=== PATIENT | female | born 1980 | race Caucasian/White ===

== ENCOUNTER 2021-07-05 16:22 | Emergency (ER) | payer MEDICAID, SELFPAY ==
[2021-07-05 17:55] VITALS: BP 135/93; PULSE 68; RESP 18; TEMP 36.4; O2SAT 100; BMI 36.8
--- NOTE | 2021-07-05 18:11 | XRR_ITS ---
PROCEDURE INFORMATION: Exam: XR Left Hand Exam date and time: 07/05/2021 6:11 PM Age: 41 years old Clinical indication: Pain; Hand; Left; Additional info: Injury to right finger approximately 2 weeks ago TECHNIQUE: Imaging protocol: XR Left hand. Views: 3 or more views. COMPARISON: No relevant prior studies available. FINDINGS: Bones/joints: There is an avulsion injury from the posterior aspect the proximal and of the left 4th distal phalanx. Soft tissues: There is soft tissue swelling of the 4th digit. XR/XR hand LT min 3V* [id number] IMPRESSION: Fracture of the base of the left 4th distal phalanx. Radiation Dose CTDIVOL = (mGy): DLP = (mGy-cm)
--- NOTE | 2021-07-05 18:35 | ED_ITS ---
HPI - Extremity Problem General: Chief complaint: Extremity Injury, Upper Stated complaint: PT say broken L ring finger Time Seen by Provider: 07/05/21 18:11 History of Present Illness: HPI Narrative: Patient is a 41-year-old female comes to the ED with pain to left ring finger. Patient says approximately 2 weeks ago she injured her finger. Injury occurred when patient was in her vehicle and was grabbing something to handed to the daughter in the backseat and she jammed her left ring finger. The tip of left ring finger was slightly bent and tender. She said all the swelling has improved over the last 2 weeks but she still has pain in the distal tip of finger and it is slightly bent. Patient still has full range of motion and ring finger. Associated symptoms: Deny chest pain, fever(s) or rash Review of Systems Const: Denies: fever(s), chills or fatigue Eyes: Denies: change in vision or eye discomfort ENMT: Denies: throat pain, odynophagia, nasal discharge or nasal congestion Card: Denies: chest pain, palpitations, edema, swelling of feet/ankles, dyspnea on exertion or orthopnea Resp: Denies: dyspnea, productive cough or non-productive cough GI: Denies: abdominal pain, nausea, vomiting, diarrhea, constipation or hematochezia : Denies: flank pain, dysuria or hematuria Musc: Reports: extremity pain (left hand ring finger) and deformity (Distal tip of Left ring finger slightly in flexion position); Denies: neck pain, back pain or extremity swelling Skin/Breast: Denies: rash or new lesions Neuro: Denies: headache(s), numbness in extremities or weakness in extremities Physical Exam Const: COMMON NORMALS: no acute distress, patient oriented x3, healthy ap pearing and alert GENERAL APPEARANCE: cooperative and comfortable HENMT: COMMON NORMALS: normocephalic HEAD & SCALP: normocephalic MOUTH: Normal oral and palatal mucosa present THROAT: posterior oropharynx normal and uvula midline Neck/C-Spine: COMMON NORMALS: supple GENERAL: Yes normal visual inspection Resp: COMMON NORMALS: normal respiratory effort, No retractions, No use of accessory muscles and clear to auscultation bilaterally AUSCULTATION: clear to auscultation bilaterally Cardio: COMMON NORMALS: regular rate, regular rhythm, S1 normal heart sound present, S2 normal heart sound present, No gallops present (Cardio), No clicks present (Cardio), No murmurs present (Cardio) and Peripheral pulses 2+ throughout RATE: regular rate RHYTHM: regular rhythm HEART SOUNDS: S1 normal heart sound present and S2 normal heart sound present PERIPHERAL PULSES: Peripheral pulses 2+ throughout GI: COMMON NORMALS: Normal to inspection, nondistended, normoactive bowel sounds present, Soft to palpation, non-tender and no masses PALPATION: Yes Soft to palpation : COMMON NORMALS: Yes no CVA tenderness BLADDER/KIDNEY EXAM: Yes no CVA tenderness Back/Pelvis: COMMON NORMALS: no CVA tenderness Extremity: GENERAL: Yes normal exam except as noted LEFT UPPER EXTREMITY: Yes hand & digits Left hand and digits: Yes inspection (Fourth digit distal tip slightly flexed. No nailbed damage noted.), Yes palpation (Tenderness over distal tip of fourth digit), Yes ROM (Full range of motion) and Yes neurovascular exam (Neurovascular tact.) Neuro: COMMON NORMALS: patient oriented x3 and moves all extremities SENSORIUM/ORIENTATION: Yes alert Skin: GENERAL SKIN EXAM: dry skin Course Vital Signs: Vital signs: Vital Signs Temperature 97.6 F 07/05/21 17:55 Pulse Rate 68 07/05/21 19:32 Respiratory Rate 18 07/05/21 19:32 Blood Pressure 135/93 07/05/21 19:32 Pulse Oximetry 100 07/05/21 19:32 MDM - Extremity (Nontraumatic) MDM Narrative: Medical decision making narrative: Patient is a 41-year-old female comes to the ED with injury to fourth digit on left hand. Injury occurred approximately 2 weeks ago and it has not improved. She has slight flexion at distal tip of fourth digit with tenderness as well. Full range of motion neurovascular intact. No nailbed damage noted. Left hand x-ray showed fracture of the base of the left fourth distal phalanx. Patient was put in a finger splint night put in order for patient be referred to orthopedic due to fracture being untreated for over 2 weeks in the slight flexion of distal tip of digit. Patient discharged home and told that case specialist will contact them the next couple days to set up a appointment with orthopedic. Return to ED precautions given. Patient understood agree with plan. Imaging Data^: Xray Ortho: Attestation: I personally reviewed and interpreted this imaging study as follows: My impression: Left hand x-ray?distal phalanx fracture Radiologist's impression: [facility], [place] [address]RGqd ReportSigned Patient: Arnol Senior #: [id number]: 1980Acct#:[id number]/Sex: 41 / FADM Date: 07/05/21Loc: ERRoom/Bed:Attending Dr: Ordering Provider/Ordering MD: Sukhi Colbert Date of Service: 07/05/21 Procedure(s): XR hand LT min 3V* [id number] Accession Number(s): [id number] Report Number: [id number] PROCEDURE INFORMATION: Exam: XR Left Hand Exam date and time: 07/05/2021 6:11 PM Age: 41 years old Clinical indication: Pain; Hand; Left; Additional info: Injury to right finger approximately 2 weeks ago TECHNIQUE: Imaging protocol: XR Left hand. Views: 3 or more views. COMPARISON: No relevant prior studies available. FINDINGS: Bones/joints: There is an avulsion injury from the posterior aspect the proximal and of the left 4th distal phalanx. Soft tissues: There is soft tissue swelling of the 4th digit. XR/XR hand LT min 3V* [id number] IMPRESSION: Fracture of the base of the left 4th distal phalanx. Radiation Dose CTDIVOL = (mGy): DLP = (mGy-cm) Dictated By:Amee Shultzigned By:Palak Shultz Date/Time:07/05/211925DD/ 10 Discharge Plan Discharge Patient Disposition: Home Clinical Impression: Fracture of distal phalanx of finger Qualifiers: Encounter type: initial encounter Finger: ring finger Fracture type: closed Fracture alignment: nondisplaced Laterality: left Qualified Code(s): S62.665A - Nondisplaced fracture of distal phalanx of left ring finger, initial encounter for closed fracture Condition: Stable Discharge Orders: Discharge ED (Routine); Ordered 07/05/21 Ordered By: Sukhi Colbert Discharge Diet: Regular Discharge Activity: Resume usual activity Patient Instructions: Finger Fracture (ED) Activity Restrictions/Additional Instructions: Follow-up with medical provider as directed. Case management should be cont acting you the next several days set up appoint with orthopedic for further evaluation and follow-up. Take medications as prescribed. Return to the ER or your medical provider if condition worsens. Please read and understand discharge instructions. Thank you for choosing [facility] for your healthcare needs today. Please realize this is an emergency room and that we are providing you with a medical screening exam and this may not be complete and all inclusive of all the testing and or work up that you may need to determine your ailment or severity of your illness. It is very important that you follow up as instructed or that you return to the Emergency Department should you have concerns or if your condition changes or worsens in any way. Coding Level of Care Code ED Production Line Mechanic for Valdo Read Exam Comprehensive
[2021-07-05 19:32] VITALS: BP 135/93; PULSE 68; RESP 18; O2SAT 100
--- NOTE | 2021-07-05 19:35 | PC.NURSE ---
frog splint sz med applied to pt. PMS normal after placement
--- NOTE | 2021-07-06 10:16 | DCPLANNER ---
sr. media manager had message to schedule a follow up appointment for patient with ortho. sr. media manager called the ortho clinic, spoke with Juana, gave clinic patients information. sr. media manager was told that patients information would be printed and reviewed. Clinic will call patient with appointment information.
--- NOTE | 2021-07-30 06:38 | DCPLANNER ---
Patient had a follow up appointment scheduled for 07.17.[address] Amaya at [facility] - patient did attend appointment.
== END 2021-07-05 19:30 | disposition home or self-care (01) ==
PROVIDERS: Emergency Provider Physician Assistant
DX: S62.665A Nondisplaced fracture of distal phalanx of left ring finger, initial encounter for closed fracture (principal); W23.0XXA Caught, crushed, jammed, or pinched between moving objects, initial encounter
CPT/HCPCS: 73130; 99282

== ENCOUNTER 2022-04-11 20:57 | Emergency (ER) | payer MEDICAID, SELFPAY ==
--- NOTE | 2022-04-11 21:15 | XRR_ITS ---
PROCEDURE INFORMATION: Exam: XR Right Wrist Exam date and time: 04/11/2022 9:32 PM Age: 42 years old Clinical indication: Injury or trauma; Fall; Blunt trauma (contusions or hematomas); Wrist; Right TECHNIQUE: Imaging protocol: Radiologic exam of the Right wrist. Views: 3 or more views. COMPARISON: No relevant prior studies available. FINDINGS: Bones/joints: Normal. Soft tissues: Normal. XR/XR wrist RT min 3V* [id number] IMPRESSION: Unremarkable
[2022-04-11 21:23] VITALS: BP 144/91; PULSE 77; RESP 18; TEMP 37; O2SAT 98; BMI 36.5
--- NOTE | 2022-04-11 21:44 | W.ED.EXTPRO ---
HPI - Extremity Problem General: Chief complaint: Extremity Injury, Upper Stated complaint: R wrist injury Time Seen by Provider: 04/11/22 21:31 History of Present Illness: 42-year-old female comes in today for complaints of right wrist pain. Patient reports pain that waxes and wanes. Patient reports yesterday she had been driving some [place] and her wrist started hurting. Patient reports that the pain and discomfort has worsened through last night through the day. Patient appears nontoxic. Patient appears in mild to moderate pain. Associated symptoms: Deny fever(s) Review of Systems Const: Denies: fever(s) Musc: Reports: extremity pain [facility] ED Female Reproductive History: Date of last menstrual period: 03/14/22 Physical Exam Const: COMMON NORMALS: alert HENMT: COMMON NORMALS: normocephalic HEAD & SCALP: normocephalic Neck/C-Spine: COMMON NORMALS: full ROM Resp: COMMON NORMALS: normal respiratory effort and clear to auscultation bilaterally AUSCULTATION: clear to auscultation bilaterally Cardio: COMMON NORMALS: regular rate RATE: regular rate Extremity: RIGHT UPPER EXTREMITY: Yes wrist (Radial tenderness) Right wrist: Yes inspection, Yes palpation and Yes ROM Neuro: SENSORIUM/ORIENTATION: Yes alert Skin: COMMON NORMALS: no rashes or lesions noted GENERAL SKIN EXAM: no rashes or lesions noted Course Vital Signs: Vital signs: Vital Signs Temperature 98.6 F 04/11/22 21:23 Pulse Rate 77 04/11/22 21:23 Respiratory Rate 18 04/11/22 21:23 Blood Pressure 144/91 04/11/22 21:23 Pulse Oximetry 98 04/11/22 21:23 Oxygen Delivery Me thod 04/11/22 21:23 MDM - Extremity (Nontraumatic) Medical Decision Making 42-year-old female comes in today with complaints of right wrist pain and discomfort. On exam patient has radial tenderness. Pulses are intact. Patient has guarded range of motion due to pain. Differential diagnosis includes sprain, tendinitis, fracture. X-ray notes no fracture. Believe the patient probably has tendinitis versus a strain. Recommended activity as tolerated. Use acetaminophen and ibuprofen for pain. Ice and heat for further relief. Patient reported understanding. Lab Data Radiology Impressions Wrist X-Ray 04/11/22 21:15 IMPRESSION: Unremarkable Discharge Plan Discharge Patient Disposition: Home Clinical Impression: Sprain and strain of wrist Condition: Stable Prescriptions: No Action meloxicam 15 mg tablet 15 mg PO DAILY Discharge Orders: Discharge ED (Routine); Ordered 04/11/22 Ordered By: Matias Cruz Discharge Diet: Usual diet Discharge Activity: Increase activity as tolerated Patient Instructions: Musculoskeletal Pain (ED) Activity Restrictions/Additional Instructions: Activity as tolerated. Use acetaminophen or ibuprofen for pain. Drink plenty of water with medication. Follow-up with primary care for further instruction. Coding Level of Care Code ED Clark Driver for Valdo Read
[2022-04-11] MEDS: HYDROcodone-acetaminophen 7.5-325 mg Tablet 1 TAB PO (22:44)
== END 2022-04-11 22:47 | disposition home or self-care (01) ==
PROVIDERS: Emergency Provider Nurse Practitioner Family
DX: S63.501A Unspecified sprain of right wrist, initial encounter (principal); X58.XXXA Exposure to other specified factors, initial encounter
CPT/HCPCS: 73110; 99283

== ENCOUNTER 2022-08-02 22:56 | Emergency (ER) | payer MEDICAID, SELFPAY ==
[2022-08-02 23:02] VITALS: BP 137/85; PULSE 80; RESP 17; TEMP 36.7; O2SAT 97
--- NOTE | 2022-08-02 23:48 | XRR_ITS ---
PROCEDURE INFORMATION: Exam: XR Left Hand Exam date and time: 08/02/2022 11:54 PM Age: 42 years old Clinical indication: Injury or trauma; Other: Puncture; Left; Patient HX: Small puntcure near middle of palmar surface of hand from cooking knife. ; Additional info: Puncture wound- palm TECHNIQUE: Imaging protocol: Radiologic exam of the Left hand. Views: 3 or more views. COMPARISON: CR XR hand LT min 3V* [id number] 07/05/2021 6:17 PM FINDINGS: Bones/joints: Normal. Soft tissues: Normal. XR/XR hand LT min 3V* [id number] IMPRESSION: No acute findings.
[2022-08-03] MEDS: tetanus-dipt-pertussis 0.5 mL SDV IM (00:22)
[2022-08-03] MEDS: lidocaine 1% INJ 20 mL MDV (mL) 3 ML INTRADERMA (01:00)
[2022-08-03 01:36] VITALS: PULSE 68; RESP 16; O2SAT 98
--- NOTE | 2022-08-03 02:40 | W.ED.WOUNDLC ---
HPI - Wound/Laceration General: Chief Complaint: Wound/Laceration Stated Complaint: puncture wound Time Seen by Provider: 08/02/22 23:46 Source: patient Mode of arrival: ambulatory Limitations: no limitations History of Present Illness: Patient presents to the emergency department today for evaluation treatment of laceration/puncture wound sustained to the left palmar aspect prior to arrival. Patient states that she and some friends were making a meal at her house. She states one of the other ladies started to drop something and the patient indicates she reached out to trying to catch it. She states that the other individual in the kitchen also tried to reach out and catch it however, she was holding a knife. She states that her hand was impacted by the blade of the knife and she received a puncture wound. It had bled but bleeding is well controlled. Patient is unsure of her last tetanus immunization. Review of Systems General: Reports: 10 or more systems reviewed and unremarkable except in HPI and below Musc: Reports: other (Left hand tenderness, pain with range of motion) Skin/Breast: Reports: other (Admits to left palmar laceration/puncture wound, bleeding) COUNTS INCLUDE [facility] BEDS AT THE [facility] ED Female Reproductive History: Date of last menstrual period: 03/14/22 Physical Exam Const: COMMON NORMALS: no acute distress, average body habitus and patient oriented x3 HENMT: COMMON NORMALS: normocephalic, atraumatic, hearing grossly normal bilaterally, Normal external nose present and moist oral mucous membranes HEAD & SCALP: normocephalic and atraumatic NOSE: Normal external nose present Eye: COMMON NORMALS: Equal, round and reactive pupils present, EOMs intact bilaterally and conjunctivae normal CONJUNCTIVA: Yes conjunctivae normal PUPIL: Yes Equal, round and reactive pupils present Neck/C-Spine: COMMON NORMALS: no JVD Lymph: LYMPHATIC: no lymphadenopathy noted Resp: COMMON NORMALS: normal respiratory effort, No retractions and No use of accessory muscles Cardio: COMMON NORMALS: no JVD, regular rate and regular rhythm RATE: regular rate RHYTHM: regular rhythm GI: COMMON NORMALS: Normal to inspection, nondistended, normoactive bowel sounds present : COMMON NORMALS: Yes no CVA tenderness BLADDER/KIDNEY EXAM: Yes no CVA tenderness Back/Pelvis: COMMON NORMALS: no CVA tenderness and thoraco-lumbar ROM normal Extremity: COMMON NORMALS: normal to inspection, full ROM and capillary refill normal NARRATIVE EXTREMITY EXAM: Patient has full range of motion to the fingers of the left hand. Patient is able to perform all range of motion of the left thumb and index finger. Neuro: COMMON NORMALS: patient oriented x3 Psych: COMMON NORMALS: mental status grossly normal, Normal thought process present, cooperative, normal affect and activity/motor behavior normal THOUGHT PROCESS: Normal thought process present Skin: OTHER: Patient has a V shaped laceration approximately 1 cm in total length noted to the palmar aspect of her left hand. There is no active bleeding though there is a small fat globule present through the wound. Procedures Laceration Laceration 1: Site: hand Side (If applicable): left Description: other (V shaped) Depth: simple, single layer Local Anesthetic: lidocaine 1% Amount of anesthesia used (mL): 3 Pre-repair: wound explored, irrigated extensively and deep structures intact Skin layer closed with: nylon Size (cm): 4-0 Number of sutures: 3 Technique: simple, interrupted Course Vital Signs: Vital signs: Vital Signs Temperature 98.0 F 08/02/22 23:02 Pulse Rate 68 08/03/22 01:36 Respiratory Rate 16 08/03/22 01:36 Blood Pressure 137/85 08/02/22 23:02 Pulse Oximetry 98 08/03/22 01:36 Oxygen Delivery Me thod 08/02/22 23:02 MDM - Wound/Laceration Medical Decision Making Patient presented to the emergency room for wound sustained to the left hand. Does not appear there was any laceration to any connective tissues as patient has full range of motion to all the fingers of her left hand. Bleeding was well controlled. X-ray was taken to assure no residual foreign material within the wound and there was none visible. Patient tolerated anesthesia of her wound and deep cleaning with chlorhexidine swabbing. Patient's wound was irrigated with sterile saline via syringe pressure. Patient's wound was repaired using 3, 4-0 nylon sutures in a simple interrupted fashion. Patient was given wound care instructions as well as suture care precautions. Patient should have sutures removed in 10 days. Went over signs and symptoms of infection for which the patient should be seen and reevaluated. Patient verbalized understanding and agreement to treatment plan. Tetanus updated today Differential Diagnosis Likely laceration (Puncture wound, retained foreign material, need for tetanus immunization), abrasion and avulsion of skin Lab Data Radiology Impressions Hand X-Ray 08/02/22 23:48 IMPRESSION: No acute findings. Discharge Plan Discharge Patient Disposition: Home Clinical Impression: Laceration of hand, left Qualifiers: Encounter type: initial encounter Foreign body presence: without foreign body Qualified Code(s): S61.412A - Laceration without foreign body of left hand, initial encounter Condition: Stable Prescriptions: No Action meloxicam 15 mg tablet 15 mg PO DAILY Discharge Orders: Discharge ED (Routine); Ordered 08/03/22 Ordered By: Danna Lane Discharge Diet: Usual diet Discharge Activity: Increase activity as tolerated Patient Instructions: Care For Your Stitches (ED), Laceration (ED) Activity Restrictions/Additional Instructions: X-rays today showed no signs of any retained foreign material within your wound. We were able to anesthetize, deep cleaned, and repaired your laceration without difficulty. I was able to deep clean your wound with chlorhexidine and we did irrigate the area with sterile saline. He received 3 nonabsorbable sutures which need to be removed in 10 days. We recommend washing the wound at least once a day with warm water and a mild soap or, anytime the wound becomes wet with contaminated liquid or soiled. Given its location, I do recommend wearing a bandage over the sutures to prevent snagging and exposure of the wound to potential contaminants. Watch carefully for any sudden swelling, sudden redness, or draining of a thick yellow or green material. If these occur you need to be seen and reevaluated. We did update your tetanus immunization today and may noticed muscle tenderness for 2 to 3 days. Thank you! Coding Level of Care Code ED Pie Crimping Machine Operator for Valdo Read
== END 2022-08-03 01:35 | disposition home or self-care (01) ==
PROVIDERS: Emergency Provider Physician Assistant
DX: S61.412A Laceration without foreign body of left hand, initial encounter (principal); W26.0XXA Contact with knife, initial encounter; Z23 Encounter for immunization
CPT/HCPCS: 12001; 73130; 90471; 90715; 96372; 99283